=== PATIENT | male | born 1970 ===

== ENCOUNTER → 2020-02-08 | Outpatient (CLI) | payer MEDICAID ==
[~2020-02-08] VITALS: Ht 180.3 cm; Wt 126.2 kg
[2020-02-08] VITALS (14 sets, daily range): BP systolic 102–130; BP diastolic 63–81; PULSE 83–97
[~2020-02-08] MED LIST: ASPIRIN 81M81 MG/TA2 PO; BYDUREON B2 MG/0.85 SQ; GEODON 20 MG20 MG PO; GLUCOPHAGE XR500 M1 PO; LANTUS100 U/ML SQ; NOVOLOG 100U100 U/M1 SQ; PRIL40 PO; PRINIVIL20 MG PO; ZYRTEC 10MG10 MG PO
[2020-02-08 13:18] LABS: INR 1.1 (0.8-3.0); PROTHROMBIN TIME 11.9 SECONDS (9.7-12.8)
== END ==
LOC: COL.RAD 12:30
PROVIDERS: Internal Medicine Gastroenterology
DX: K76.0 Fatty (change of) liver, not elsewhere classified (principal); Z72.89 Other problems related to lifestyle